=== PATIENT | female | born 1945 | race Caucasian/White ===

== ENCOUNTER → 2020-03-28 | Outpatient (CLI) | payer OTHER ==
[~2020-03-28] MED LIST: ASPIRIN81 MG PO; HYDROCHLOROTHIA25 MG PO; LIPITOR TAB 1010 MG PO; NOLVADEX 10 MG10 MG PO; SYMBICORT 160-1 INHA INH; SYNTHROID88 MCG PO
== END ==
LOC: MAMO 03-27 10:00
DX: C50.419 Malignant neoplasm of upper-outer quadrant of unspecified female breast (principal); D47.3 Essential (hemorrhagic) thrombocythemia; K90.9 Intestinal malabsorption, unspecified
CPT/HCPCS: 77066; G0279

== ENCOUNTER → 2021-04-01 | Outpatient (CLI) | payer OTHER | LOC: MAMO 09:40 | DX: C50.419 Malignant neoplasm of upper-outer quadrant of unspecified female breast (principal); D47.3 Essential (hemorrhagic) thrombocythemia; K90.9 Intestinal malabsorption, unspecified | CPT/HCPCS: 77063; 77067 ==